=== PATIENT | female | born 1990 | race Caucasian/White ===

== ENCOUNTER 2018-01-20 18:00 | Emergency (ER) | payer MEDICAID ==
--- NOTE | 2018-01-20 19:27 | ER Document Report ---
ED Medical Screen (RME) - General Chief Complaint: Nausea/Vomiting Stated Complaint: NAUSEA/VOMITING Time Seen by Provider: 01/20/18 19:26 Mode of Arrival: Ambulatory Information source: Patient Notes: Patient is 11 weeks presents with nausea, vomiting not tolerating p.o. States she had an ultrasound at [facility] showing an intrauterine . Denies any abdominal pain. TRAVEL OUTSIDE OF THE [place] IN LAST 30 DAYS: No - Related Data Allergies/Adverse Reactions: No Known Allergies Allergy (Unverified 01/20/18 18:03) Physical Exam - Vital signs Vitals: Temp Pulse Resp BP Pulse Ox 98.7 F 101 H 14 112/62 99 01/20/18 18:10 01/20/18 18:10 01/20/18 18:10 01/20/18 18:10 01/20/18 18:10 Course - Vital Signs Vital signs: Temp Pulse Resp BP Pulse Ox 98.7 F 101 H 14 112/62 99 01/20/18 18:10 01/20/18 18:10 01/20/18 18:10 01/20/18 18:10 01/20/18 18:10
[2018-01-20] MEDS ORDERED: METOCLOPRAMIDE HCL INJ/PF 10 MG/2 ML SDV IV ONE (19:28)
[2018-01-20] MEDS ORDERED: DIPHENHYDRAMINE HCL 50 MG/ML VIAL IV ONE (19:29)
[2018-01-20] MEDS ORDERED: PYRIDOXINE HCL INJ 100 MG/1 ML VIAL IM ONE (19:30)
[2018-01-20 20:11] LABS: ABSOLUTE BASOPHILS # (AUTO) 0.1 10^3/uL (0.0-0.2); ABSOLUTE EOSINOPHILS # (AUTO) 0.2 10^3/uL (0.0-0.6); ABSOLUTE LYMPHOCYTES (AUTO) 1.9 10^3/uL (0.5-4.7); ABSOLUTE MONOCYTES (AUTO) 0.4 10^3/uL (0.1-1.4); ABSOLUTE NEUT (AUTO) 5.5 10^3/uL (1.7-8.2); BASOPHILS % (AUTO) 0.7 % (0-2); EOSINOPHILS % (AUTO) 2.7 % (0-6); HEMATOCRIT 41.5 % (36.0-47.0); HEMOGLOBIN 14.5 g/dL (12.0-15.5); LYMPHOCYTES % (AUTO) 23.6 % (13-45); MEAN CORPUSCULAR HEMOGLOBIN 30.3 pg (27.0-33.4); MEAN CORPUSCULAR VOLUME 87 fl (80-97); MONOCYTES % (AUTO) 5.1 % (3-13); PLATELET COUNT 231 10^3/uL (150-450); RED BLOOD COUNT 4.78 10^6/uL (3.72-5.28); RED CELL DISTRIBUTION WIDTH 13.3 % (11.5-14.0); SEGMENTED NEUTROPHILS % (AUTO) 67.9 % (42-78); TOTAL CELLS COUNTED % (AUTO) 100 %
[2018-01-20] MEDS: RINGERS SOLUTION,LACTATED 1,000 ML IV PRN ×2 (20:14→21:42)
[2018-01-20 21:28] LABS: ALANINE AMINOTRANSFERASE 10 U/L (9-52); ALKALINE PHOSPHATASE 41 U/L (38-126); ANION GAP 14 (5-19); ASPARTATE AMINO TRANSFERASE 21 U/L (14-36); BILIRUBIN,DIRECT 0.2 mg/dL (0.0-0.4); BILIRUBIN,TOTAL 0.3 mg/dL (0.2-1.3); BLOOD UREA NITROGEN 4 mg/dL (7-20); CALCIUM 9.3 mg/dL (8.4-10.2); CARBON DIOXIDE 23 mmol/L (22-30); CHLORIDE 104 mmol/L (98-107); GLUCOSE 77 mg/dL (75-110); POTASSIUM 4.6 mmol/L (3.6-5.0); TOTAL PROTEIN 6.8 g/dL (6.3-8.2)
[2018-01-20 22:03] LABS: AMORPHOUS SEDIMENT,URINE TRACE /HPF; APPEARANCE,URINE CLOUDY; BILIRUBIN,URINE NEGATIVE (NEGATIVE); COLOR,URINE YELLOW; GLUCOSE, URINE NEGATIVE (NEGATIVE); KETONES,URINE TRACE mg/dL (NEGATIVE); LEUKOCYTE ESTERASE,URINE NEGATIVE (NEGATIVE); NITRITE,URINE NEGATIVE (NEGATIVE); PROTEIN,URINE NEGATIVE (NEGATIVE); URINE SPECIFIC GRAVITY 1.013; UROBILINOGEN,URINE NEGATIVE mg/dL (<2.0)
--- NOTE | 2018-01-20 22:54 | ER Document Report ---
ED General - General Chief Complaint: Nausea/Vomiting Stated Complaint: NAUSEA/VOMITING Time Seen by Provider: 01/20/18 19:26 Mode of Arrival: Ambulatory Notes: Patient is a pleasant 27-year-old female who is 11 weeks . This is her second . First was uncomplicated. She presents with complaint of nausea and vomiting has been occurring throughout most of her . At the point today where she was having hard time keeping anything down and therefore she came to the ER. No fevers. No abdominal pain. No dysuria. No diarrhea. No vaginal bleeding or abnormal discharge. In triage she received Reglan she says this is relieved her nausea and she feels much better. She has had a previous ultrasound during this which showed a normal IUP. She is try to take vitamins but they make her throw up. No other complaints at this time. TRAVEL OUTSIDE OF THE [place] IN LAST 30 DAYS: No - Related Data Allergies/Adverse Reactions: No Known Allergies Allergy (Unverified 01/20/18 18:03) Past Medical History - General Information source: Patient - Social History Smoking Status: Current Every Day Smoker Frequency of alcohol use: None Drug Abuse: None Family History: Reviewed & Not Pertinent Patient has suicidal ideation: No Patient has homicidal ideation: No Renal/ Medical History: Denies: Hx Peritoneal Dialysis Review of Systems - Review of Systems Notes: My Normal Review Basic REVIEW OF SYSTEMS: CONSTITUTIONAL : Denies fever, chills, or sweats. Denies recent illness. EENT: Denies eye, ear, throat, or mouth pain or symptoms. Denies nasal or sinus congestion. RESPIRATORY: Denies cough, cold, or chest congestion. Denies shortness of breath, difficulty breathing, or wheezing. GASTROINTESTINAL: Denies abdominal pain. Vomiting GENITOURINARY: Denies difficulty urinating, painful urination, burning, frequency, or blood in urine. FEMALE GENITOURINARY: Denies vaginal bleeding, abnormal or irregular periods. LMP: Currently MUSCULOSKELETAL: Denies neck or back pain or joint pain or swelling. SKIN: Denies rash or skin lesions. NEUROLOGICAL: Denies altered mental status or loss of consciousness. Denies headache. Denies weakness or paralysis or loss of use of either side. Denies problems with gait or speech. Denies sensory or motor loss. ALL OTHER SYSTEMS REVIEWED AND NEGATIVE. Physical Exam - Vital signs Vitals: Temp Pulse Resp BP Pulse Ox 98.7 F 101 H 14 112/62 99 01/20/18 18:10 01/20/18 18:10 01/20/18 18:10 01/20/18 18:10 01/20/18 18:10 - Notes Notes: General Appearance: Well nourished, alert, cooperative, no acute distress, no obvious discomfort. Well-appearing. Vitals: reviewed, See vital signs table. Head: no swelling or tenderness to the head Eyes: PERRL, EOMI, Conjuctiva clear Mouth: No decreasd moisture Neck: Supple, no neck tenderness, No thyromegaly Lungs: No wheezing, No rales, No rhonci, No accessory muscle use, good air exchange bilaterally. Heart: Normal rate, Regular rythm, No murmur, no rub Abdomen: Normal BS, soft, No rigidity, No abdominal tenderness, No guarding, no rebound, gravid abdomen Extremities: strength 5/5 in all extremities, good pulses in all extremities, no swelling or tenderness in the extremities, no edema. Skin: warm, dry, appropriate color, no rash Neuro: speech clear, oriented x 3, normal affect, responds appropriately to questions. Course - Re-evaluation Re-evalutation: 01/20/18 22:51 Patient looks and feels much improved. Reglan worked well for her. I will write prescription for Reglan. I informed her that she cannot take vitamins to at least do [id number] gummy vitamins multivitamins folate and then. I encouraged her to return to ER immediately if she has recurrent vomiting, fevers, any abdominal pain, any vaginal bleeding, or if she feels unwell. Patient agrees with plan and will be discharged home. Dictation of this chart was performed using voice recognition software; therefore, there may be some unintended grammatical errors. - Vital Signs Vital signs: Temp Pulse Resp BP Pulse Ox 97.8 F 73 14 98/58 L 100 01/20/18 22:18 01/20/18 22:18 01/20/18 22:18 01/20/18 22:23 01/20/18 22:18 - Laboratory Result Diagrams: 01/20/18 20:02 01/20/18 20:45 Laboratory results interpreted by me: 01/20/18 01/20/18 20:45 21:47 BUN 4 L Creatinine 0.36 L Beta HCG, Quant 92200.00 H Urine Ketones TRACE H Discharge - Discharge Clinical Impression: Hyperemesis gravidarum Condition: Good Disposition: HOME, SELF-CARE Additional Instructions: Please take over the counter muti-vitamins that contain folic acid and Vitamin B12 if you are unable to take vitamins. Please return to the ER immediately if you develop fevers, recurrent vomiting, abdominal pain, vaginal bleeding, or if you feel that you are worsening. Prescriptions: Metoclopramide HCl [Reglan 10 mg Tablet] 1 tab PO ASDIR PRN #25 tablet PRN Reason: Referrals: FELIX MARTEL MD [Primary Care Provider] - Follow up in 3-5 days
[2018-01-20 23:08] VITALS: BP 112/59
== END 2018-01-20 23:11 | disposition home or self-care (01) ==
LOC: ER 18:00
DX: O21.0 Mild hyperemesis gravidarum (principal); O99.331 Smoking (tobacco) complicating pregnancy, first trimester; Z3A.11 11 weeks gestation of pregnancy
CPT/HCPCS: 99284; 96372; 96361; 96374; 96375; 36415; 84702; 85025; 80053; 81001; J1200; J2765; J3415; J7120

== ENCOUNTER 2018-07-01 12:09 | Outpatient (CLI) | payer MEDICAID ==
--- NOTE | 2018-07-01 12:57 | Non Stress Test Report ---
Non Stress Test Datetime Report Generated by CPN: 07/01/2018 12:57 DEMOGRAPHIC EGA NST: 34.5 INDICATION Indication for Study: Ordered by Provider Indication for Study: Substance Abuse; Ordered by Provider Indication for Study (NST) Other: subutex use Indication for Study (NST) Other: repeat NST from office VITAL SIGNS Temperature - NST: 97.5 Pulse - NST: 90 RESP - NST: 17 NBPSYS NST: 106 NBPDIA NST: 55 MONITORING Monitor Explained: Monitor Explained; Test Explained; Patient Verbalized Understanding Monitor Explained: Monitor Explained; Test Explained Time on Monitor: 07/01/2018 12:25 Time on Monitor: 07/01/2018 12:25 Time off Monitor: 07/01/2018 12:55 NST Duration: 30 NST INTERVENTIONS NST Interventions: PO Hydration; Reposition Patient NST Interventions: PO Hydration; Reposition Patient Physician Notified NST: Rajan Rhodes CNM BABY A: [id number] BABY A Movement : Present Contraction Frequency : 0 FHR Baseline : 135 Accelerations : 15X15 Decelerations : None Variability : Moderate 6-25bpm NST Review: Meets Criteria for Reactive NST NST Review: Questionable if Meets Criteria for Reactive NST NST Review and Verified By : D Bellavance RN NST Results: Reactive NST REPORT Report Trigger: Send Report
== END 2018-07-01 13:02 | disposition home or self-care (01) ==
LOC: LC 12:09
PROVIDERS: ATTEND Obstetrics & Gynecology
DX: O36.8330 Maternal care for abnormalities of the fetal heart rate or rhythm, third trimester, not applicable or unspecified (principal); Z3A.34 34 weeks gestation of pregnancy
CPT/HCPCS: 59025

== ENCOUNTER 2018-07-31 19:42 | Inpatient (IN) | payer MEDICAID ==
[2018-07-31] MEDS ORDERED: DINOPROSTONE 10 MG VAGINAL INSERT.SR PV PRN (20:14)
[2018-07-31] MEDS ORDERED: RINGERS SOLUTION,LACTATED 300 ML IV ONE (20:14)
[2018-07-31] MEDS ORDERED: PENICILLIN G POTASSIUM 5,000,000 UNIT in DEXTROSE 5%-WATER 100 ML IV ONE (20:16)
[2018-07-31] MEDS ORDERED: DINOPROSTONE 10 MG VAGINAL INSERT.SR ONE (20:32)
[2018-07-31] MEDS: RINGERS SOLUTION,LACTATED 1,000 ML IV PRN (20:41)
[2018-07-31 21:02] LABS: ABSOLUTE EOSINOPHILS # (AUTO) 0.2 10^3/uL (0.0-0.6); ABSOLUTE LYMPHOCYTES (AUTO) 1.9 10^3/uL (0.5-4.7); ABSOLUTE NEUT (AUTO) 8.6 10^3/uL (1.7-8.2); BASOPHILS % (AUTO) 0.2 % (0-2); EOSINOPHILS % (AUTO) 2.1 % (0-6); HEMATOCRIT 33.5 % (36.0-47.0); HEMOGLOBIN 11.6 g/dL (12.0-15.5); LYMPHOCYTES % (AUTO) 15.9 % (13-45); MEAN CORPUSCULAR HEMOGLOBIN 30.4 pg (27.0-33.4); MEAN CORPUSCULAR HGB CONC 34.6 g/dL (32.0-36.0); MEAN CORPUSCULAR VOLUME 88 fl (80-97); MONOCYTES % (AUTO) 8.6 % (3-13); PLATELET COUNT 186 10^3/uL (150-450); RED BLOOD COUNT 3.81 10^6/uL (3.72-5.28); RED CELL DISTRIBUTION WIDTH 14.3 % (11.5-14.0); SEGMENTED NEUTROPHILS % (AUTO) 73.2 % (42-78); TOTAL CELLS COUNTED % (AUTO) 100 %; WHITE BLOOD COUNT 11.8 10^3/uL (4.0-10.5)
[2018-07-31 21:09] LABS: APPEARANCE,URINE CLOUDY; BILIRUBIN,URINE NEGATIVE (NEGATIVE); COLOR,URINE YELLOW; GLUCOSE, URINE NEGATIVE (NEGATIVE); KETONES,URINE NEGATIVE (NEGATIVE); LEUKOCYTE ESTERASE,URINE TRACE (NEGATIVE); NITRITE,URINE NEGATIVE (NEGATIVE); PROTEIN,URINE NEGATIVE (NEGATIVE); URINE SPECIFIC GRAVITY 1.015; UROBILINOGEN,URINE NEGATIVE mg/dL (<2.0)
[2018-07-31 21:26] LABS: URINE AMPHETAMINES SCREEN NEGATIVE; URINE BARBITURATES SCREEN NEGATIVE; URINE BENZODIAZEPINES SCREEN NEGATIVE; URINE COCAINE SCREEN NEGATIVE; URINE MARIJUANA (THC) SCREEN NEGATIVE; URINE METHADONE SCREEN NEGATIVE; URINE PHENCYCLIDINE SCREEN NEGATIVE
[2018-08-01] MEDS ORDERED: MISOPROSTOL 0.2 MG TABLET ONE (07:24)
[2018-08-01] MEDS ORDERED: OXYTOCIN/NORMAL SALINE 20 UNIT/1,000 ML RTUINJ ONE (07:24)
[2018-08-01] MEDS ORDERED: LIDOCAINE 1% INJ-PF (10 MG/ML) 30 ML SDV ONE (07:24)
[2018-08-01] MEDS ORDERED: OXYTOCIN 10 UNIT/ML VIAL ONE (07:24)
[2018-08-01] MEDS: RINGERS SOLUTION,LACTATED 1,000 ML IV PRN ×3 (07:36→14:02)
--- NOTE | 2018-08-01 08:50 | Warning Signs in Babies ---
VOD Warning Signs Datetime Report Generated by [facility]: 08/01/2018 08:49 VOD#608 -Warning Signs in Babies: Viewed with Parent(s)/Family (08/01/2018 08:49:Keith Vázquez RN)
[2018-08-01] MEDS ORDERED: OXYTOCIN/NORMAL SALINE 20 UNIT/1,000 ML RTUINJ IV PRN ×3 (08:55→21:26)
[2018-08-01] MEDS ORDERED: PENICILLIN G-K 5 MILLION UNIT VIAL ONE ×3 (09:17→17:24)
[2018-08-01] MEDS: PENICILLIN G POTASSIUM 2,500,000 UNIT in DEXTROSE 5%-WATER 50 ML IV SCH ×2 (13:31→17:30)
[2018-08-01] MEDS ORDERED: FENTANYL/BUPIVACAINE/NS/PF 300 MCG/150 ML RTUINJ EPI ONE (13:43)
[2018-08-01] MEDS ORDERED: EPHEDRINE SULFATE INJ 50 MG/1 ML AMPULE ONE (13:43)
[2018-08-01] MEDS ORDERED: BUPIVACAINE HCL 0.25 % INJ/PF (2.5 MG/1 ML) 30 ML VIAL ONE (13:44)
--- NOTE | 2018-08-01 16:49 | Admission Physical ---
Datetime Report Generated by CPN: 08/01/2018 16:48 CURRENT ADMISSION Chief Complaint: Scheduled Induction of Labor Chief Complaint Other: poly at 36w Indication for Induction: Polyhydramnios Admit Impression : No Active Labor Admit Plan: Admit to Unit; Initiate Labor Induction Protocol Admit Plan- Other: cervidil plased las night ALLERGIES Medication Allergies: Unknown Medication Allergies: No Known Allergies (07/31/2018) Latex: Unknown OBSTETRICAL HISTORY EDC: 08/07/2018 00:00 : 2 Para: 1 Term: 1 : 0 SAB: 0 IAB: 0 Ectopic: 0 Livin Cesareans: 0 VBACs: 0 Multiple Births: 0 Gestational Diabetes: No Rh Sensitization: No Incompetent Cervix: No SHI: No Infertility: No ART Treatment: No Uterine Anomaly: No IUGR: No Hx Previous C/S: No Macrosomia: No Hx Loss/Stillborn: No PIH: No Hx : No Placenta Previa/Abruption: No Depression/PP Depression: No PTL/PROM: No Post Hemorrhage: No Current Procedures: Ultrasound; NST Obstetrical History Comments: G1- 2008 at 40 weeks, 8lbs 4oz male G2- 2014 EAB G3- 2017 EAB G4- current SEE RECORDS Alcohol: No Marijuana : No Cocaine: No Other Illicit Drugs: No Cigarettes: Current Everyday Smoker. 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 INFECTIOUS HISTORY Gonorrhea: No Genital Herpes: No Chlamydia: No Tuberculosis: No Syphilis: No Hepatitis: No HIV/AIDS Exposure: No Rash or Viral Illness: No HPV: Yes Infectious History Comments: LGSIL pap PHYSICAL EXAM General: Normal HEENT: Normal Neurologic: Normal Thyroid: Deferred Heart: Normal Lungs: Normal Breast: Deferred Back: Normal Abdomen: Normal Genitourinary Exam: Normal Extremities: Normal DTRs: Deferred Pelvic Type: Adequate Vital Signs: Reviewed; Within Normal Limits VAGINAL EXAM Dilatation: 6 Effacement: 80 Station: -3 Contraction Comments: q2-4 mins MEMBRANES Membranes: Bulging FETUS A EGA: 39.1 Monitoring: External US FHR- Baseline: 130 Variability: Moderate 6-25bpm Accelerations: 15X15 Decelerations: Prolonged FHR Category: Category II Estimated Weight (gm): 3200 Presentation: Vertex Presentation- Other: verified by sono Admit Comment: with hx EAB x2, hx asthma, suboxone user, GBS pos. polyhydramnios dx at 36 weeks. last ORLIN normal. s/p cervidil last night, cook catheter and pitocin today. cook out at 1620 with cx 6/80/-3 BBOW. pitocin stopped for prolonged decel, now baby has recovered. P:cont GBS prophylaxis, restart pitocin, anticipate . PLANS FOR LABOR AND DELIVERY Labor and Delivery: None Feeding Preference: Breast INFORMED CONSENT Assignment: Layla Bennett MD Signature: with User ID: [email or web address] : with User ID: [email or web address]
[2018-08-01] MEDS ORDERED: CEFAZOLIN 2 GM/D5W RTU 2 GM/50 ML RTUPB IV ONE (21:18)
[2018-08-01] MEDS ORDERED: ACETAMINOPHEN WITH CODEINE #3 TABLET PO PRN ×2 (21:26)
[2018-08-01] MEDS ORDERED: MEASLES,MUMPS&RUBELLA VACC/PF 0.5 ML VIAL SUBCUT PRN (21:26)
[2018-08-01] MEDS ORDERED: DIPHENHYDRAMINE HCL 25 MG CAPSULE PO PRN (21:26)
[2018-08-01] MEDS ORDERED: PSEUDOEPHEDRINE HCL 30 MG TABLET PO PRN (21:26)
[2018-08-01] MEDS ORDERED: DIBUCAINE 1% OINTMENT 56 GM TP PRN (21:26)
[2018-08-01] MEDS ORDERED: PROMETHAZINE HCL 25 MG TABLET PO PRN (21:26)
[2018-08-01] MEDS ORDERED: PROMETHAZINE HCL 25 MG SUPP.RECT PR PRN (21:26)
[2018-08-01] MEDS ORDERED: NA PHOS,M-B/NA PHOS,DI-BA (ADULT) 133 ML ENEMA PR PRN (21:26)
[2018-08-01] MEDS ORDERED: MAGNESIUM HYDROXIDE SUSP 30 ML UDCUP PO PRN (21:26)
[2018-08-01] MEDS ORDERED: GLYCERIN/WITCH HAZEL LEAF 1 EACH MED..WIPE TP PRN (21:26)
[2018-08-01] MEDS ORDERED: DIPH/PERTUSS(ACELL)/TETANUS VAC/PF 0.5 ML SYR (>=10YO) IM PRN (21:26)
[2018-08-01] MEDS ORDERED: ZOLPIDEM TARTRATE 5 MG TABLET PO PRN (21:26)
[2018-08-01] MEDS ORDERED: BENZOCAINE/MENTHOL AEROSOL SPRAY 56 ML TOP PRN (21:26)
[2018-08-01] MEDS ORDERED: PROMETHAZINE HCL INJ 25 MG/1 ML VIAL IV PRN (21:26)
[2018-08-01] MEDS ORDERED: MISOPROSTOL 0.2 MG TABLET PR PRN (21:26)
[2018-08-01] MEDS ORDERED: ACETAMINOPHEN 325 MG TABLET PO PRN (21:26)
[2018-08-01] MEDS: IBUPROFEN 800 MG TABLET PO SCH (23:50)
[2018-08-02] MEDS ORDERED: CEFAZOLIN 2 GM/D5W RTU 2 GM/50 ML RTUPB IV SCH
[2018-08-02] MEDS: FAMOTIDINE 20 MG TABLET PO SCH ×3 (01:49→21:42)
[2018-08-02] MEDS: CEFAZOLIN 2 GM/D5W RTU 2 GM/50 ML RTUPB IV SCH ×4 (03:43→21:43)
[2018-08-02 06:22] LABS: MEAN CORPUSCULAR HEMOGLOBIN 30.3 pg (27.0-33.4); MEAN CORPUSCULAR HGB CONC 34.3 g/dL (32.0-36.0); MEAN CORPUSCULAR VOLUME 88 fl (80-97); PLATELET COUNT 190 10^3/uL (150-450); RED BLOOD COUNT 3.98 10^6/uL (3.72-5.28); RED CELL DISTRIBUTION WIDTH 14.5 % (11.5-14.0); WHITE BLOOD COUNT 19.1 10^3/uL (4.0-10.5)
[2018-08-02] MEDS: IBUPROFEN 800 MG TABLET PO SCH ×3 (06:39→21:42)
--- NOTE | 2018-08-02 10:08 | PDOC PROGRESS REPORT ---
Subjective-OB Progress Note for:: 08/02/18 Subjective: reports bleeding slowing, pain controlled with current meds, denies needs Physical Exam (OB) Vital Signs: Temp Pulse Resp BP Pulse Ox 98.0 F 90 16 100/63 98 08/02/18 08:19 08/02/18 08:19 08/02/18 08:19 08/02/18 08:19 08/02/18 08:19 Intake & Output 08/01/18 08/02/18 08/03/18 06:59 06:59 06:59 Intake Total 1855 Balance 1855 Weight 74.1 kg - Abdomen Description: Soft, Round Hernia Present: No Fundal Description: Firm, Midline Fundal Height: u/u - u/2 - Abdominal Distension: No distension Tenderness: Nontender - Extremities Lower extremities: Ricarda's sign - neg Calf: Normal, Nontender Objective-Diagnostic Laboratory: 08/02/18 05:50 08/02/18 05:50 WBC 19.1 H RBC 3.98 Hgb 12.0 Hct 35.0 L MCV 88 MCH 30.3 MCHC 34.3 RDW 14.5 H Plt Count 190 Assessment and Plan(PN) - Assessment and Plan (1) Carrier of group B Streptococcus Is this a current diagnosis for this admission?: Yes (2) Normal vaginal delivery Is this a current diagnosis for this admission?: Yes (3) History of depression Is this a current diagnosis for this admission?: Yes (4) Polyhydramnios Qualifiers: Trimester: third trimester Is this a current diagnosis for this admission?: Yes - Time Spent with Patient Time with patient: Less than 15 minutes Medications reviewed and adjusted accordingly: Yes - Disposition Anticipated Discharge: Home Within: within 24 hours
[2018-08-02] MEDS: SERTRALINE HCL 50 MG TABLET PO SCH (10:44)
[2018-08-02] MEDS: PRENATAL VITAMIN W DHA CAPSULE PO SCH (10:45)
[2018-08-02] MEDS: SENNOSIDES/DOCUSATE 8.6-50 MG 1 EACH TABLET PO SCH (10:45)
[2018-08-02] MEDS: FERROUS SULFATE 325 MG TABLET PO SCH ×3 (10:45→17:58)
[2018-08-02] MEDS: DOCUSATE SODIUM 100 MG CAPSULE PO SCH ×2 (10:45→17:58)
[2018-08-02] MEDS: BUPRENORPHINE HCL 2 MG SUBLINGUAL TABLET SL SCH (12:13)
[2018-08-02] MEDS: PENICILLIN G POTASSIUM 2,500,000 UNIT in DEXTROSE 5%-WATER 50 ML IV SCH (12:52)
[2018-08-03] MEDS: IBUPROFEN 800 MG TABLET PO SCH ×2 (05:14→13:07)
[2018-08-03 09:31] VITALS: BP 115/63
[2018-08-03] MEDS: SERTRALINE HCL 50 MG TABLET PO SCH (10:00)
[2018-08-03] MEDS: FERROUS SULFATE 325 MG TABLET PO SCH ×2 (10:01→10:08)
[2018-08-03] MEDS: DOCUSATE SODIUM 100 MG CAPSULE PO SCH (10:01)
[2018-08-03] MEDS: SENNOSIDES/DOCUSATE 8.6-50 MG 1 EACH TABLET PO SCH (10:01)
[2018-08-03] MEDS: PRENATAL VITAMIN W DHA CAPSULE PO SCH (10:01)
[2018-08-03] MEDS: BUPRENORPHINE HCL 2 MG SUBLINGUAL TABLET SL SCH (10:07)
[2018-08-03] MEDS: FAMOTIDINE 20 MG TABLET PO SCH (10:07)
--- NOTE | 2018-08-03 10:32 | PDOC DISCHARGE SUMMARY ---
Final Diagnosis Discharge Date: 08/03/18 - Final Diagnosis (1) Carrier of group B Streptococcus Is this a current diagnosis for this admission?: Yes (2) Normal vaginal delivery Is this a current diagnosis for this admission?: Yes (3) History of depression Is this a current diagnosis for this admission?: Yes (4) Polyhydramnios Is this a current diagnosis for this admission?: Yes (5) Suboxone maintenance treatment complicating , antepartum Is this a current diagnosis for this admission?: Yes Discharge Data - Discharge Medication Prescriptions: Ibuprofen [Motrin 800 mg Tablet] 800 mg PO Q8HP PRN #60 tablet PRN Reason: Home Medications: Buprenorphine HCl/Naloxone HCl [Suboxone 2 mg-0.5 mg Sl Film] 3 mg PO DAILY 01/20/18 Pediatric Multivitamin No.42 [Flintstones] 1 tab PO DAILY 07/01/18 Sertraline HCl [Zoloft 50 mg Tablet] 100 mg PO DAILY 07/01/18 Ibuprofen [Motrin 800 mg Tablet] 800 mg PO Q8HP PRN #60 tablet 08/03/18 Reason(s) for Admission: Induction of Labor Procedures: NST Intrapartum Procedure(s): Spontaneous Vaginal Delivery - Diagnosis Test Laboratory: Temp Pulse Resp BP Pulse Ox 97.9 F 81 18 115/63 98 08/03/18 08:00 08/03/18 08:00 08/03/18 07:34 08/03/18 08:00 08/03/18 08:00 07/31/18 07/31/18 08/02/18 19:50 20:40 05:50 RBC 3.81 3.98 Hgb 11.6 L 12.0 Hct 33.5 L 35.0 L Urine Opiates Screen NEGATIVE - Discharge information/Instructions Discharge Activity: Balance Activity w/Rest, Pelvic Rest Discharge Diet: Regular Disposition: HOME, SELF-CARE Follow up with: [facility] in: 4, Weeks - placenta culture pending
--- NOTE | 2018-08-06 10:23 | Delivery Summary ---
Del Sum A-C Datetime Report Generated by CPN: 08/06/2018 10:22 DELIVERY PERSONNEL DELIVERY PERSONNEL: [id number] Delivery Doctor:: Layla Bennett MD Anesthesiologist:: Gini Presley MD Labor and Delivery Nurse:: Milena Jaime RNdesign maintenance engineer Nurse:: Fiorella Ontiveros RN Nursery Nurse:: Smiley Teixeira RN MATERNAL INFORMATION Delivery Anesthesia: Epidural Medications After Delivery: Pitocin Drip 20 Units/1000ml NSS Estimated Blood Loss (ml): 100 Maternal Complications: None Provider Comments: VMI delivered in MOSES presentation with compound left hand. Shoulders and body delivered without difficulty. Cord doubly clamped and cut and to maternal abdomen for NRP. Cord serially clamped but began dissentegrating all the way to the placenta which required removal manually. Possible velamentous cord insertion also noted. Placenta cultured maternal/ side. manual exploration of the uterus revealed no evidence of retained placenta. FF at U. mother and baby stable upon provider leaving the room. LABOR SUMMARY EDC: 08/07/2018 00:00 No. Babies in Womb: 1 Attempted: No Labor Anesthesia: Epidural LABOR INFORMATION Reason for Induction: Polyhydramnios Onset of Labor: 08/01/2018 16:20 Complete Dilatation: 08/01/2018 21:47 Cervical Ripening Agents: Cytotec @ 1000 mcg UT (Annotations: placed by Dr. Bennett who remains at bedside) Cervical Ripening Agents: Cervidil; Powell Balloon Oxytocin: Induction Group B Beta Strep: positive Antibiotics # of Doses: 3 Antibiotics Time of Last Dose: 1729 Name of Antibiotic Given: 1729 Steroids Given: None Reason Steroids Not Administered: Not Applicable MEMBRANES Membranes Rupture Method: Artificial Rupture of Membranes: 08/01/2018 17:05 Length of Rupture (hr): 3.97 Amniotic Fluid Color: Clear Amniotic Fluid Amount: Moderate Amniotic Fluid Odor: Normal STAGES OF LABOR Stage 1 hr: 5 Stage 1 min: 27 Stage 2 hr: 0 Stage 2 min: -44 Stage 3 hr: 0 Stage 3 min: 7 Total Time in Labor hr: 4 Total Time in Labor min: 50 VAGINAL DELIVERY Episiotomy: None Laceration #1: None Laceration Extension #1: N/A Laceration Repair: Not Applicable Sponge Count Correct: Yes Sponge Count Correct: N/A Sharps Count Correct: Yes Sharps Count Correct: N/A CSECTION DELIVERY Primary Indication: N/A Secondary Indication: N/A CSection Incidence: N/A Labor: N/A Elective: N/A CSection Incision: N/A BABY A INFORMATION Infant Delivery Date/Time: 08/01/2018 21:03 Method of Delivery: Vaginal Method of Delivery: Vaginal Born in Route : No : N/A Forceps: N/A Vacuum Extraction: N/A Shoulder Dystocia : No PRESENTATION/POSITION BABY A Presentation: Cephalic Presentation: Cephalic Cephalic Presentation: Vertex Vertex Position: Left Occipital Anterior Breech Presentation: N/A PLACENTA INFORMATION BABY A Placenta Delivery Time : 08/01/2018 21:10 Placenta Method of Delivery: Manual Removal Placenta Method of Delivery: Manual Removal Placenta Status: Delivered SCORES BABY A Heart Rate 1 min: >100 bpm Resp Effort 1 min: Good Cry Reflex Irritability 1 min: Cough or Sneeze or Pulls Away Muscle Tone 1 min: Active Motion Color 1 min: Blue/Pale Resuscitation Effort 1 min: Tactile Stimulation SCORE 1 MIN: 8 Heart Rate 5 min: >100 bpm Resp Effort 5 min: Good Cry Reflex Irritability 5 min: Cough or Sneeze or Pulls Away Muscle Tone 5 min: Active Motion Color 5 min: Body [place], Extremities Blue SCORE 5 MIN: 9 INFANT INFORMATION BABY A Gestational Age at Delivery: 39.1 Gestational Status: Full Term- 39- 40.6 Weeks Condition : Stable Sex: Male Sex: Male IDENTIFICATION BABY A Verification Date/Time: 08/01/2018 21:36 ID Band Number: [id number] Mother's Name Verified: Yes Infant RN Verifying : Mary Sood WEIGHT/LENGTH BABY A Infant Birthweight (gm): 3052 Infant Weight (lb): 6 Weight (oz): 12 Length (in): 19.50 Length (cm): 49.53 CORD INFORMATION BABY A No. Cord Vessels: 3 Nuchal Cord : N/A Cord Blood Taken: Yes-For Storage (Mom's Blood type +) Suction: Mouth; Nose ASSESSMENT BABY A Complications: Multiple Variable Decels Physical Findings at Delivery: Puncture Wound from Scalp Electrode Infant Respirations: Appears Normal Skin to Skin: Yes Concrete Conveyor Operator/ALS Called : No Care By: M. Transferred To: [facility] BABY B INFORMATION : N/A SIGNATURES Signature: with User ID: [email or web address] : I was personally available for consultation and serving as supervising physician for the P.
== END 2018-08-03 17:30 | disposition home or self-care (01) | DRG 806 ==
LOC: LR 19:42 → 2S 08-01 23:14
PROVIDERS: ADMIT Obstetrics & Gynecology Gynecology; ATTEND Obstetrics & Gynecology Gynecology
PROC: 4A1HXCZ Monitoring of Products of Conception, Cardiac Rate, External Approach (ICD-10-PCS; 2018-07-31)
PROC: 10E0XZZ Delivery of Products of Conception, External Approach (ICD-10-PCS; principal; 2018-08-01)
PROC: 3E033VJ Introduction of Other Hormone into Peripheral Vein, Percutaneous Approach (ICD-10-PCS; 2018-08-01)
PROC: 10907ZC Drainage of Amniotic Fluid, Therapeutic from Products of Conception, Via Natural or Artificial Opening (ICD-10-PCS; 2018-08-01)
DX: O40.3XX0 Polyhydramnios, third trimester, not applicable or unspecified (principal); O99.323 Drug use complicating pregnancy, third trimester; Z37.0 Single live birth; O99.824 Streptococcus B carrier state complicating childbirth; F11.90 Opioid use, unspecified, uncomplicated; O99.334 Smoking (tobacco) complicating childbirth; F17.210 Nicotine dependence, cigarettes, uncomplicated; Z3A.39 39 weeks gestation of pregnancy
CPT/HCPCS: 36415; 80307; 81005; 85025; 85027; 86592; 86850; 86900; 86901; 87070; 87077; 87186; 87205; 88307; C1726; J0690; J2540; J2590; J3010; J3490